=== PATIENT | female | born 1950 | race Caucasian/White ===

== ENCOUNTER 2017-12-22 05:38 | Day surgery (SDC) | payer MEDICARE, BC ==
[~2017-12-22] VITALS: Wt 97.5 kg
[~2017-12-22 05:38] MED LIST: Advil200 M1 PO; BENA20 PO; BUDE6HFA INH; CALTRATE PO; FIBER CAPSULES PO; FLAXSEED OIL PO; Garlic1 EAC1 PO; Glucosamine Co1 EAC1 PO; LEVSOD50 PO; NAPR220 PO; RALO60 PO; Vitamin B Comple1 EA PO
[2017-12-23 04:24] LABS: BASOPHILS ABSOLUTE AUTO 0.02 K/mm3 (0.00-0.23); BASOPHILS PERCENT AUTO 0 % (0-2); EOSINOPHILS ABSOLUTE AUTO 0.02 K/mm3 (0.00-0.68); EOSINOPHILS PERCENT AUTO 0 % (0-6); Hematocrit 32.6 % (33.0-51.0); IMMATURE GRAN ABSOLUTE AUTO 0.03 K/mm3 (0.00-0.10); IMMATURE GRAN PERCENT AUTO 0 % (0-1); LYMPHOCYTES ABSOLUTE AUTO 2.36 K/mm3 (0.84-5.20); LYMPHOCYTES PERCENT AUTO 20 % (21-46); MONOCYTES ABSOLUTE AUTO 1.48 K/mm3 (0.16-1.47); MONOCYTES PERCENT AUTO 13 % (4-13); Mean Corpuscular HGB 30.5 pg (26.0-34.0); Mean Corpuscular HGB Conc 33.7 g/dL (31.5-36.5); Mean Corpuscular Volume 90 fL (80-100); Mean Platelet Volume 10.3 fL (9.1-12.4); NEUTROPHILS ABSOLUTE AUTO 7.74 K/mm3 (1.96-9.15); NEUTROPHILS PERCENT AUTO 66 % (41-73); Platelet Count 222 K/mm3 (150-400); RDW Coefficient Variation 12.1 % (11.7-14.2); RDW Standard Deviation 40.4 fL (35.1-46.3); Red Blood Cell Count 3.61 M/mm3 (3.80-5.20); White Blood Cell Count 11.65 K/mm3 (4.00-11.30)
[2017-12-23 04:42] LABS: Anion Gap 5 mmol/L (6-16); Blood Urea Nitrogen 15 mg/dL (8-24); Bun/Creatinine Ratio 22.8 (12.0-20.0); CO2, Blood 27 mmol/L (21-32); Chloride, Blood 107 mmol/L (98-108); Creatinine, Blood 0.66 mg/dL (0.40-1.00); Glomerular Filtration Rate >60 (60-); Glucose, Blood 126 mg/dL (70-99); Magnesium, Blood 2.2 mg/dL (1.6-2.4); Potassium, Blood 4.4 mmol/L (3.5-5.5); Sodium, Blood 139 mmol/L (136-145)
[2017-12-23] MEDS ORDERED: ENOX40I SC (09:25)
[2017-12-23] MEDS ORDERED: Percocet 5-3251 EACH PO (09:25)
[2017-12-23] MEDS ORDERED: PROM25 PO (09:26)
== END 2017-12-23 11:53 | disposition home or self-care (01) ==
LOC: ORSCMMR 05:38 → ORD 07:30 → SURS 10:27 → ORSCMMR 12-23 11:53
PROVIDERS: Orthopaedic Surgery
PROC: 8E0YXBZ Computer Assisted Procedure of Lower Extremity (ICD-10-PCS; principal; 2017-12-22 07:30)
PROC: 0SRD0J9 Replacement of Left Knee Joint with Synthetic Substitute, Cemented, Open Approach (ICD-10-PCS; principal; 2017-12-22 07:30)
DX: M17.12 Unilateral primary osteoarthritis, left knee (principal); Z01.812 Encounter for preprocedural laboratory examination; Z01.818 Encounter for other preprocedural examination; I10 Essential (primary) hypertension; J45.909 Unspecified asthma, uncomplicated; E03.9 Hypothyroidism, unspecified; Z87.891 Personal history of nicotine dependence; Z79.899 Other long term (current) drug therapy
CPT/HCPCS: 36415; 73560-LT; 80048; 83735; 85025; 86850; 86900; 86901; 88300; 94640; 94760; 97110; 97116; 97161; 97530; C1713; C1776; G8978; G8979; J0171; J0690; J0735; J1100; J1650; J1885; J2250; J2405; J2795; J7120

== ENCOUNTER 2018-09-06 13:02 | Day surgery (SDC) | payer MEDICARE, BC ==
[~2018-09-06] VITALS: Ht 170.2 cm; Wt 94.0 kg
[~2018-09-06 13:02] MED LIST changes: +ALBU90OI INH; +ALEVE220 MG PO; +ENOX40I SC; +GARLIC200 MG PO; +Lotensin40 MG PO; +PROBIOTIC PO; +PROM25 PO; +Percocet 5-3251 EACH PO
== END 2018-09-06 15:12 | disposition home or self-care (01) ==
LOC: ORSCSDS 13:02
PROVIDERS: Surgery
PROC: 0DBK8ZX Excision of Ascending Colon, Via Natural or Artificial Opening Endoscopic, Diagnostic (ICD-10-PCS; principal; 2018-09-06 14:15)
DX: Z12.11 Encounter for screening for malignant neoplasm of colon (principal); D12.2 Benign neoplasm of ascending colon; Z80.0 Family history of malignant neoplasm of digestive organs; I10 Essential (primary) hypertension; E03.9 Hypothyroidism, unspecified; J45.909 Unspecified asthma, uncomplicated; E78.5 Hyperlipidemia, unspecified; Z79.899 Other long term (current) drug therapy; Z87.891 Personal history of nicotine dependence
CPT/HCPCS: 88305; J2704; J7120

== ENCOUNTER → 2018-12-02 | Outpatient (CLI) | payer MEDICARE, BC | END | disposition home or self-care (01) | LOC: LAB SHORT 17:04 → LAB 17:04 | DX: R30.0 Dysuria (principal) | CPT/HCPCS: 87077; 87086; 87147; 87186 ==

== ENCOUNTER → 2018-12-19 | Outpatient (CLI) | payer MEDICARE, BC | END | disposition home or self-care (01) | LOC: LAB 11:33 → LAB SHORT 11:33 | DX: R30.0 Dysuria (principal) | CPT/HCPCS: 87086; 87147 ==

== ENCOUNTER 2022-01-29 12:54 | Day surgery (SDC) | payer MEDICARE, BC ==
[~2022-01-29] VITALS: Ht 172.7 cm; Wt 93.0 kg
[2022-01-29] MEDS ORDERED: GLUC500 (13:12)
[2022-01-29] MEDS ORDERED: ASCO500 (13:19)
[2022-01-29] MEDS ORDERED: ERGO400 (13:20)
[2022-01-29] MEDS ORDERED: CALCIUM CIT 311 EAC7 (13:20)
[2022-01-29] MEDS ORDERED: PSYSENPA (13:22)
[2022-01-29] MEDS ORDERED: LOSA25 (13:22)
--- NOTE | 2022-01-29 13:47 | NUR ---
01/29/22 1347 SHANI BELTRÁN 3 ATTEMPTS AT IV. FIRST ATTEMPT BY MA IN R HAND INFILTRATED. SECOND ATTEMPT BY MA IN R FOREARM INFILTRATED. THRID ATTEMPT BY MA IN L HAND SUCCESSFUL.
== END 2022-01-29 15:30 | disposition home or self-care (01) ==
LOC: ORSCSDS 12:54
PROVIDERS: Surgery
PROC: 0DJD8ZZ Inspection of Lower Intestinal Tract, Via Natural or Artificial Opening Endoscopic (ICD-10-PCS; principal; 2022-01-29 14:15)
DX: Z12.11 Encounter for screening for malignant neoplasm of colon (principal); Z86.010 Personal history of colon polyps; Z80.0 Family history of malignant neoplasm of digestive organs; K64.8 Other hemorrhoids; I10 Essential (primary) hypertension; J45.909 Unspecified asthma, uncomplicated; E03.9 Hypothyroidism, unspecified; E66.9 Obesity, unspecified; Z68.32 Body mass index [BMI] 32.0-32.9, adult; Z79.899 Other long term (current) drug therapy
CPT/HCPCS: J2704; J7120

== ENCOUNTER 2024-01-19 09:37 | Day surgery (SDC) | payer MEDICARE, BC ==
[2024-01-19] VITALS (8 sets, daily range): BP systolic 141–168; BP diastolic 70–83
[~2024-01-19] VITALS: Ht 170.2 cm; Wt 96.5 kg
[~2024-01-19 09:37] MED LIST changes: +ASCO500; +CALCIUM CIT 311 EAC7; +CRANBERRY215 MG PO; +ERGO400; +FLAX PO; +GLUC500; +LOSA25; +OCUVITE BLUE L1 EACH PO; +PSYSENPA
[2024-01-19] MEDS ORDERED: propofoL 20 ML IV ONE (12:11)
[2024-01-19] MEDS ORDERED: Dexamethasone Sod Phos 10 MG/ML 1ML VIAL ONE (12:11)
[2024-01-19] MEDS ORDERED: Ondansetron HCl 2 MG / ML 2ML Vial ONE (12:11)
[2024-01-19] MEDS ORDERED: FentaNYL Citrate 50 MCG/ML 2 ML Injection ONE (12:11)
[2024-01-19] MEDS ORDERED: CeFAZolin Sodium 2,000 MG in NS 100 ML IV SCH (12:20)
[2024-01-19] MEDS ORDERED: Lactated Ringer's 1,000 ML IV SCH (12:20)
--- NOTE | 2024-01-19 13:01 | NUR ---
History, Chart, Medications and Allergies reviewed before start of procedure. Pre-Op teaching done. Pt verbalizes understanding. Patient States Post-Procedure ride home has been arranged. Patient reports completing Chlorhexadine shower X2 prior to admission to hospital. Lungs clear T/O to Auscultation.
[2024-01-19] MEDS ORDERED: Bupivacaine 0.5% HCl 5 MG/ML 30MLVIAL ONE (13:19)
[2024-01-19] MEDS ORDERED: Ketorolac Tromethamine 30mg Vial ONE (13:51)
--- NOTE | 2024-01-19 15:46 | NUR ---
Discharge instructions reviewed with patient. Patient verbalizes understanding. Copy given to patient to take home. Dressing c/d/i. Patient States Post-Procedure ride home has been arranged. Discharged via wheelchair to private car for ride home.
== END 2024-01-19 15:30 | disposition home or self-care (01) ==
LOC: ORSCMMR 09:37 → ORD 11:45 → ORSCMMR 11:45
PROVIDERS: Surgery
PROC: 0JBD0ZX Excision of Right Upper Arm Subcutaneous Tissue and Fascia, Open Approach, Diagnostic (ICD-10-PCS; principal; 2024-01-19 11:45)
DX: D17.21 Benign lipomatous neoplasm of skin and subcutaneous tissue of right arm (principal); I10 Essential (primary) hypertension; J45.909 Unspecified asthma, uncomplicated; E03.9 Hypothyroidism, unspecified; Z79.899 Other long term (current) drug therapy; E66.9 Obesity, unspecified; Z68.33 Body mass index [BMI] 33.0-33.9, adult
CPT/HCPCS: 88304; J0690; J1100; J1885; J2405; J2704; J3010; J7120